=== PATIENT | male | born 1990 | race Caucasian/White ===

== ENCOUNTER 2020-08-04 18:15 | Emergency (ER) | payer BC ==
[~2020-08-04] VITALS: Ht 177.8 cm; Wt 77.1 kg
[~2020-08-04 18:15] MED LIST: AMOCLA500 PO; Bactrim Ds Tab1 EACH PO; CEPH500 PO; CRUTCH4 USE; Colace100 MG PO; DIBU30TO PR; HYDACE25S PR; HYDACE5 PO; HYDCOR2.5C PR; NAPR500 PO; Naprosyn500 MG PO; Norco 5-325 Ta1 EACH PO; OXYACE5T PO; PRAHYD1AE TOP; PROM25 PO; RXHYDMOR2 PO; TAMS.4ER PO; Zofran Odt4 MG PO
[2020-08-04] MEDS ORDERED: Bactrim Ds Tab1 EACH PO (19:17)
== END 2020-08-04 19:27 | disposition home or self-care (01) ==
LOC: ER 18:15
DX: L02.412 Cutaneous abscess of left axilla (principal); L02.411 Cutaneous abscess of right axilla
CPT/HCPCS: 10060; 99283-25; A9270

== ENCOUNTER 2021-12-17 21:41 | Emergency (ER) | payer BC ==
[~2021-12-17] VITALS: Ht 177.8 cm; Wt 74.8 kg
== END 2021-12-17 22:18 | disposition home or self-care (01) ==
LOC: ER 21:41
DX: U07.1 COVID-19 (principal); F17.210 Nicotine dependence, cigarettes, uncomplicated; Z79.899 Other long term (current) drug therapy
CPT/HCPCS: A9270; J1885